=== PATIENT | female | born 1995 | race American Indian/Alaskan Native ===

== ENCOUNTER 2017-12-27 08:49 | Emergency (ER) | payer OTHER ==
[2017-12-27 09:04] VITALS: BP 112/75
[2017-12-27 09:57] LABS: Basophils % (Auto) 0.2 % (0.0-1.8); Eosinophils % (Auto) 0.2 % (0.0-4.3); Hematocrit 37.8 % (30.3-42.9); Hemoglobin 12.7 gm/dl (10.1-14.3); Lymphocytes % (Auto) 11.2 % (13.4-35.0); Mean Corpuscular HGB Conc 34 % (30-34); Mean Corpuscular Hemoglobin 31 pg (28-32); Mean Corpuscular Volume 91 fl (79-97); Mean Platelet Volume 7.6 fl (6-12); Monocytes % (Auto) 3.3 % (0.0-7.3); Platelet Count 288 K/mm3 (140-440); Red Blood Count 4.14 M/mm3 (3.65-5.03); Red Cell Distribution Width 13.2 % (13.2-15.2)
[2017-12-27 09:58] LABS: Lymphocytes # (Auto) 1.2 K/mm3 (1.2-5.4); Monocytes # (Auto) 0.4 K/mm3 (0.0-0.8)
[2017-12-27 10:15] LABS: Alanine Aminotransferase 12 units/L (7-56); Albumin 4.6 g/dL (3.9-5); BUN/Creatinine Ratio 15; Blood Urea Nitrogen 6 mg/dL (7-17); Calcium 9.4 mg/dL (8.4-10.2); Hemolysis Index 3; Lipase 19 units/L (13-60)
[2017-12-27] MEDS ORDERED: ZOFRAN IV ONE (10:31)
[2017-12-27] MEDS ORDERED: NACL 0.9% 1000 ML 1,000 ML IV ONE (10:31)
--- NOTE | 2017-12-27 10:34 | Emergency Department Report ---
ED General Adult HPI - General Chief complaint: Nausea/Vomiting/Diarrhea Stated complaint: DIZZY,NAUSEA/ Time Seen by Provider: 12/27/17 09:52 Source: patient Mode of arrival: Ambulatory Limitations: No Limitations - History of Present Illness Initial comments: Patient is 22 years old female 2 para 1, patient presented to the ER complaining of vomiting that started all of a sudden and around 2:00 this morning. Patient stated that she has been vomiting a lot and she is dizzy. She denied any chest pain or shortness of breath. No abdominal pain. Patient denied any diarrhea or urinary symptoms. No vaginal bleeding or vaginal discharge. Patient stated that she just found that she is 2 weeks ago. Her last menstrual period was October 25. - Related Data Allergies Allergy/AdvReac Type Severity Reaction Status Date / Time No Known Allergies Allergy Unverified 12/27/17 08:59 ED Review of Systems ROS: Stated complaint: DIZZY,NAUSEA/ Other details as noted in HPI Comment: All other systems reviewed and negative Constitutional: denies: chills Respiratory: denies: cough, orthopnea, shortness of breath, SOB with exertion Cardiovascular: denies: chest pain, palpitations Gastrointestinal: nausea, vomiting. denies: abdominal pain, diarrhea, constipation, hematemesis, melena, hematochezia Genitourinary: denies: urgency, dysuria, frequency, hematuria, abnormal menses Skin: denies: rash, lesions Psychiatric: denies: depression ED Past Medical Hx - Past Medical History Previous Medical History?: Yes Additional medical history: VAGINAL DELIVERY 02-26-2015 - Surgical History Past Surgical History?: No - Social History Smoking Status: Current Every Day Smoker Substance Use Type: Marijuana ED Physical Exam - General Limitations: No Limitations General appearance: alert, in no apparent distress - Head Head exam: Present: atraumatic, normocephalic, normal inspection - Eye Eye exam: Present: normal appearance, PERRL - ENT ENT exam: Present: normal exam, mucous membranes dry - Neck Neck exam: Present: normal inspection, full ROM. Absent: tenderness, meningismus, lymphadenopathy - Respiratory Respiratory exam: Present: normal lung sounds bilaterally. Absent: respiratory distress, wheezes, rales, rhonchi, stridor, accessory muscle use, decreased breath sounds, prolonged expiratory - Cardiovascular Cardiovascular Exam: Present: regular rate, normal rhythm, normal heart sounds - GI/Abdominal GI/Abdominal exam: Present: soft, normal bowel sounds. Absent: distended, tenderness, guarding, rebound, rigid, mass, bruit, pulsatile mass, hernia - Extremities Exam Extremities exam: Present: normal inspection, full ROM, normal capillary refill. Absent: calf tenderness - Neurological Exam Neurological exam: Present: alert, oriented X3, CN II-XII intact, normal gait - Skin Skin exam: Present: warm, intact, normal color ED Course Vital Signs 12/27/17 08:59 Temperature 98.8 F Pulse Rate 65 Respiratory 20 Rate Blood Pressure 112/75 O2 Sat by Pulse 100 Oximetry ED Medical Decision Making - Lab Data Result diagrams: 12/27/17 09:35 12/27/17 09:35 - Radiology Data Radiology results: report reviewed Referring Physician: MARRY OSORIO Patient Name: BRIAN AVERY Date of : 1995 Sex: Female Report Date: 2017-12-27 Report Status: [place] [address] Ultrasound Report Signed Patient: BRIAN AVERY MR#: [id number] : 1995 Acct:[id number] Age/Sex: 22 / F ADM Date: 12/27/17 Loc: ED Attending Dr: Ordering Physician: MARRY OSORIO Date of Service: 12/27/17 Procedure(s): US OB transvaginal Accession Number(s): [id number] cc: MARRY OSORIO ULTRASOUND OB LESS THAN 14 WEEKS - TRANSABDOMINAL AND TRANSVAGINAL INDICATION: Abdominal pain, . COMPARISON: None similar at this institution. FINDINGS: Transabdominal and transvaginal pelvic sonography performed in this patient with LMP of 10/25/2017 and estimated menstrual age of 9 weeks and zero days. It demonstrates an anteverted, gravid uterus estimated at 10.7 x 5.9 x 6.5 cm with a single, viable intrauterine gestation with heart rate of 161 beats per minute. A 3 mm yolk sac seen. Mean crown-rump length of 2.04 cm corresponds to 8 weeks and 4 days. Cervix closed. No significant free fluid. Unremarkable 3 x 1.3 x 3.3 cm right ovary. A 5.3 x 3 x 2.7 cm left ovary demonstrates a 3.3 cm complex intrinsic cyst as on endovaginal image 19. CONCLUSION: 1. Single, live intrauterine gestation with an ultrasound estimated age of 8 weeks and 4 days and ROBERT of 08/04/2018. 2. Other findings, as above. Thank you for the opportunity to participate in this patient's care. Transcribed By: RS Dictated By: SANDRA CURRIE MD Electronically Authenticated By: SANDRA CURRIE MD Signed Date/Time: 12/27/17 132 DD/ 1325 TD/TT: 12/27/17 1329 Critical care attestation.: If time is entered above; I have spent that time in minutes in the direct care of this critically ill patient, excluding procedure time. ED Disposition Clinical Impression: Abdominal pain affecting Disposition: DC-01 TO HOME OR SELFCARE Is pt being admited?: No Condition: Stable Instructions: Abdominal Pain in (ED) Referrals: ANISA PLAZA MD [Staff Physician] - 3-5 Days
[2017-12-27 10:42] LABS: Bacteria,Urine 1+ /HPF (Negative); Bilirubin,Urine NEG (Negative); Blood,Urine NEG (Negative); Color,Urine Yellow (Yellow); Mucus,Urine 3+ /HPF; Urobilinogen,Urine < 2.0 mg/dL (<2.0)
[2017-12-27] MEDS ORDERED: ROCEPHIN/NS 1 GM/50 ML 1 GM/50 ML BAG IV ONE (11:14)
[2017-12-27] MEDS ORDERED: cefTRIAXone 1 GM in NACL 0.9% 20 ML IV ONE (11:30)
--- NOTE | 2017-12-27 13:35 | Ultrasound Report ---
ULTRASOUND OB LESS THAN 14 WEEKS - TRANSABDOMINAL AND TRANSVAGINAL INDICATION: Abdominal pain, . COMPARISON: None similar at this institution. FINDINGS: Transabdominal and transvaginal pelvic sonography performed in this patient with LMP of 10/25/2017 and estimated menstrual age of 9 weeks and zero days. It demonstrates an anteverted, gravid uterus estimated at 10.7 x 5.9 x 6.5 cm with a single, viable intrauterine gestation with heart rate of 161 beats per minute. A 3 mm yolk sac seen. Mean crown-rump length of 2.04 cm corresponds to 8 weeks and 4 days. Cervix closed. No significant free fluid. Unremarkable 3 x 1.3 x 3.3 cm right ovary. A 5.3 x 3 x 2.7 cm left ovary demonstrates a 3.3 cm complex intrinsic cyst as on endovaginal image 19. CONCLUSION: 1. Single, live intrauterine gestation with an ultrasound estimated age of 8 weeks and 4 days and ROBERT of 08/04/2018. 2. Other findings, as above. Thank you for the opportunity to participate in this patient's care.
== END 2017-12-27 14:14 | disposition home or self-care (01) ==
LOC: ED 08:49
DX: O26.891 Other specified pregnancy related conditions, first trimester (principal); O21.0 Mild hyperemesis gravidarum; Z3A.08 8 weeks gestation of pregnancy; O99.331 Smoking (tobacco) complicating pregnancy, first trimester; O99.321 Drug use complicating pregnancy, first trimester; F12.10 Cannabis abuse, uncomplicated
CPT/HCPCS: 36415; 76801; 76817; 80053; 81001; 83690; 84702; 85025; 96374; 96375; 99284; J0696; J2405; J7030

== ENCOUNTER 2019-09-29 19:25 | Emergency (ER) | payer SELFPAY ==
[2019-09-29 20:01] VITALS: BP 94/57
--- NOTE | 2019-09-29 20:46 | Emergency Department Report ---
ED ENT HPI - General Chief complaint: Dental/Oral Stated complaint: BOTTOM LT MOUTH PAIN Time Seen by Provider: 09/29/19 20:41 Source: patient Mode of arrival: Ambulatory Limitations: No Limitations - History of Present Illness Initial comments: This is a 24-year-old female nontoxic well in appearance with no signs of distress presents to the ED with complaint of chornic toothache. Patient denies any facial swelling. Denies following up with a dentist. Denies any fever, chills, headache, nausea, vomiting, chest pain or SOB. Denies any other comp laints. Denies any allergies. MD complaint: tooth pain -: year(s) Location: tooth # 1 - pain here Severity: mild Severity scale (0 -10): 8 Quality: aching Consistency: intermittent Improves with: none Worsens with: none Context- Dental: history of dental caries Associated Symptoms: toothache. denies: fever, cough, gum swelling, pain with swallowing, sore throat, tinnitus, hearing loss, discharge from ear, rhinorrhea - Related Data Previous Rx's Medication Instructions Recorded Last Taken Type Nitrofurantoin Monohyd/M-Cryst 100 mg PO BID #14 capsule 12/27/17 Unknown Rx [Macrobid 100 mg Capsule] Ondansetron [Zofran Odt] 4 mg PO Q8HR PRN #14 tab.rapdis 12/27/17 Unknown Rx Vit Calc,Iron,Folic 1 each PO DAILY #30 tablet 12/27/17 Unknown Rx [ Vitamins] Allergies Allergy/AdvReac Type Severity Reaction Status Date / Time No Known Allergies Allergy Verified 08/20/18 21:39 ED Dental HPI - General Chief complaint: Dental/Oral Stated complaint: BOTTOM LT MOUTH PAIN Time Seen by Provider: 09/29/19 20:41 Source: patient Mode of arrival: Ambulatory Limitations: No Limitations - Related Data Previous Rx's Medication Instructions Recorded Last Taken Type Nitrofurantoin Monohyd/M-Cryst 100 mg PO BID #14 capsule 12/27/17 Unknown Rx [Macrobid 100 mg Capsule] Ondansetron [Zofran Odt] 4 mg PO Q8HR PRN #14 tab.rapdis 12/27/17 Unknown Rx Vit Calc,Iron,Folic 1 each PO DAILY #30 tablet 12/27/17 Unknown Rx [ Vitamins] Allergies Allergy/AdvReac Type Severity Reaction Status Date / Time No Known Allergies Allergy Verified 08/20/18 21:39 ED Review of Systems ROS: Stated complaint: BOTTOM LT MOUTH PAIN Other details as noted in HPI Constitutional: denies: chills, fever Eyes: denies: eye pain, eye discharge, vision change ENT: dental pain. denies: ear pain, throat pain Respiratory: denies: cough, shortness of breath, wheezing Cardiovascular: denies: chest pain, palpitations Endocrine: no symptoms reported Gastrointestinal: denies: abdominal pain, nausea, diarrhea Genitourinary: denies: urgency, dysuria, discharge Musculoskeletal: denies: back pain, joint swelling, arthralgia Skin: denies: rash, lesions Neurological: denies: headache, weakness, paresthesias Psychiatric: denies: anxiety, depression Hematological/Lymphatic: denies: easy bleeding, easy bruising ED Past Medical Hx - Past Medical History Previous Medical History?: No Additional medical history: VAGINAL DELIVERY 02-26-2015 - Surgical History Past Surgical History?: No - Social History Smoking Status: Never Smoker Substance Use Type: None - Medications Home Medications: Home Medications Medication Instructions Recorded Confirmed Last Taken Type Nitrofurantoin Monohyd/M-Cryst 100 mg PO BID #14 capsule 12/27/17 Unknown Rx [Macrobid 100 mg Capsule] Ondansetron [Zofran Odt] 4 mg PO Q8HR PRN #14 tab.rapdis 12/27/17 Unknown Rx Vit Calc,Iron,Folic 1 each PO DAILY #30 tablet 12/27/17 Unknown Rx [ Vitamins] ED Physical Exam - General Limitations: No Limitations General appearance: alert, in no apparent distress - Head Head exam: Present: atraumatic, normocephalic - Expanded ENT Exam Expanded Ear exam: Present: normal external inspection Mouth exam: Present: normal external inspection. Absent: drooling, trismus, muffled voice Teeth exam: Present: dental caries, fractured tooth #, dental tenderness #, gingival enlargement, other (no swelling. no abscess. ) Throat exam: Positive: normal inspection, other (uvula midline). Negative: tonsillar erythema, tonsillomegaly, tonsillar exudate, R peritonsillar mass, L peritonsillar mass - Neck Neck exam: Present: normal inspection, full ROM. Absent: tenderness, meningismus, lymphadenopathy ED Course Vital Signs 09/29/19 09/29/19 19:56 20:00 Temperature 98.3 F Pulse Rate 81 Respiratory 12 Rate Blood Pressure 94/57 [Right] O2 Sat by Pulse 98 Oximetry - Reevaluation(s) Reevaluation #1: 09/29/19 20:44 Patient is speaking in full sentences with no signs of distress noted. ED Medical Decision Making - Medical Decision Making Patient was instructed to Follow-up with a dentist doctor in 3-5 days or if symptoms worsen and continue return to emergency room as soon as possible. At time of discharge, the patient does not seem toxic or ill in appearance. No acute signs of distress noted. Patient agrees to discharge treatment plan of care. No further questions noted by the patient. Critical care attestation.: If time is entered above; I have spent that time in minutes in the direct care of this critically ill patient, excluding procedure time. ED Disposition Clinical Impression: Toothache Disposition: Z-07 MED SCREENING EXAM-LEFT Is pt being admited?: No Does the pt Need Aspirin: No Condition: Stable Additional Instructions: Follow-up with a dentist doctor in 3-5 days or if symptoms worsen and continue return to emergency room as soon as possible. Referrals: SHANKAR PEREYRA MD [Primary Care Provider] - 3-5 Days ANGELICA GARZA MD [Staff Physician] - 3-5 Days [facility] [Outside] - 3-5 Days
== END 2019-09-29 21:00 | disposition left against medical advice (07) ==
LOC: ED 19:25
DX: K08.89 Other specified disorders of teeth and supporting structures (principal); Z79.899 Other long term (current) drug therapy
CPT/HCPCS: 99281

== ENCOUNTER 2020-05-15 17:39 | Emergency (ER) | payer SELFPAY ==
[2020-05-15 18:56] VITALS: BP 101/66
== END 2020-05-15 22:15 | disposition left against medical advice (07) ==
LOC: ED 17:39
DX: Z53.21 Procedure and treatment not carried out due to patient leaving prior to being seen by health care provider (principal)